=== PATIENT | female | born 1970 | race Caucasian/White ===

== ENCOUNTER 2016-11-07 11:24 | Emergency (ER) | payer OTHER ==
[2016-11-07 13:16] LABS: HEMOGLOBIN 14.4 gm/dl (12.3-15.3); RED BLOOD COUNT 4.72 M/UL (4.00-5.10)
[2016-11-07 13:43] LABS: BUN/CREATININE RATIO 11 (0-10)
== END 2016-11-07 14:55 | disposition home or self-care (01) ==
LOC: ER1 11:24
PROVIDERS: Physician Assistant Medical
DX: R11.0 Nausea (principal); F41.9 Anxiety disorder, unspecified; M79.7 Fibromyalgia; Z79.899 Other long term (current) drug therapy
CPT/HCPCS: 80053; 81001; 82150; 83690; 85025; 99283

== ENCOUNTER → 2016-11-13 | Outpatient (CLI) | payer OTHER | LOC: KOH-I 11-09 10:30 | DX: R10.11 Right upper quadrant pain (principal) | CPT/HCPCS: 76705 ==

== ENCOUNTER 2020-10-01 14:37 | Emergency (ER) | payer OTHER ==
[~2020-10-01 14:37] MED LIST: FLEXERIL 10 MG10 MG PO; IBUPROFEN600 MG PO; MEDROL4 MG PO; NORFLEX 100 MG100 MG PO; PREDNISONE 50 M50 MG PO; Voltaren Gel 1 % TOP
[2020-10-02] MEDS ORDERED: OMEPRAZOLE20 MG PO (16:40)
[2020-10-02] MEDS ORDERED: ONDANSETRON ODT4 MG SL (16:40)
== END 2020-10-01 16:59 | disposition home or self-care (01) ==
LOC: ER1 14:37
DX: R07.9 Chest pain, unspecified (principal); R11.0 Nausea; Z53.20 Procedure and treatment not carried out because of patient's decision for unspecified reasons
CPT/HCPCS: 93005; 99284

== ENCOUNTER 2020-10-02 12:38 | Emergency (ER) | payer OTHER ==
[2020-10-02 13:19] LABS: HEMOGLOBIN 13.9 gm/dl (12.3-15.3); RED BLOOD COUNT 4.55 M/UL (4.00-5.10); WHITE BLOOD COUNT 7.9 K/UL (4.5-11.0)
[2020-10-02 13:34] LABS: BUN/CREATININE RATIO 14 (0-10)
[2020-10-02] MEDS ORDERED: ONDANSETRON ODT4 MG SL (16:40)
[2020-10-02] MEDS ORDERED: OMEPRAZOLE20 MG PO (16:40)
== END 2020-10-02 17:17 | disposition home or self-care (01) ==
LOC: ER1 12:38
PROVIDERS: Emergency Medicine
DX: R07.89 Other chest pain (principal); R11.0 Nausea; E78.5 Hyperlipidemia, unspecified; Z90.710 Acquired absence of both cervix and uterus; Z87.442 Personal history of urinary calculi
CPT/HCPCS: 71046; 80053; 82550; 82553; 83874; 84484; 85025; 93005; 96374; 96375; 99285; J1885; J2405